=== PATIENT | female | born 1940 | race Caucasian/White ===

== ENCOUNTER 2018-05-19 07:55 | Day surgery (SDC) | payer OTHER ==
[~2018-05-19] VITALS: Ht 157.5 cm; Wt 64.9 kg
[~2018-05-19 07:55] MED LIST: Aspir 8181 MG PO; Atenolol50 MG PO; MELA3 PO; Pravachol40 MG PO; Super Calcium600 MG PO; VITAMIN B122500 MCG PO; VITAMIN C500 M1 PO; Vitamin D2000 UNIT PO
== END 2018-05-19 09:50 | disposition home or self-care (01) ==
LOC: ORSCSDS 07:55
PROVIDERS: Surgery
PROC: 0DJD8ZZ Inspection of Lower Intestinal Tract, Via Natural or Artificial Opening Endoscopic (ICD-10-PCS; principal; 2018-05-19 09:15)
DX: Z12.11 Encounter for screening for malignant neoplasm of colon (principal); Z86.010 Personal history of colon polyps; K21.9 Gastro-esophageal reflux disease without esophagitis; I10 Essential (primary) hypertension; E78.00 Pure hypercholesterolemia, unspecified; Z80.0 Family history of malignant neoplasm of digestive organs; Z79.82 Long term (current) use of aspirin; Z79.899 Other long term (current) drug therapy
CPT/HCPCS: J7120

== ENCOUNTER 2020-03-28 10:00 | Day surgery (SDC) | payer OTHER ==
[~2020-03-28] VITALS: Ht 157.5 cm; Wt 69.7 kg
[~2020-03-28 10:00] MED LIST changes: +ASCO500 PO; +ATEN50 PO; +B-121000 MCG PO; +Biotin800 MCG PO; +ESOM20 PO
--- NOTE | 2020-03-28 10:28 | NUR ---
03/28/20 1028 Renetta Aguirre 1 IV MISS IN RW BYMA VALVE PT TOW
--- NOTE | 2020-03-28 12:38 | NUR ---
03/28/20 1238 Fang Segal LATE ENTRY PATIENT REFUSED MULTIPLE OFFERS OF PO FLUIDS
== END 2020-03-28 12:27 | disposition home or self-care (01) ==
LOC: ORSCSDS 10:00
PROVIDERS: Student in an Organized Health Care Education/Training Program
PROC: 0DB48ZX Excision of Esophagogastric Junction, Via Natural or Artificial Opening Endoscopic, Diagnostic (ICD-10-PCS; principal; 2020-03-28 11:15)
PROC: 0DB58ZX Excision of Esophagus, Via Natural or Artificial Opening Endoscopic, Diagnostic (ICD-10-PCS; principal; 2020-03-28 11:15)
DX: R13.10 Dysphagia, unspecified (principal); I10 Essential (primary) hypertension; N18.9 Chronic kidney disease, unspecified; K21.9 Gastro-esophageal reflux disease without esophagitis; E78.00 Pure hypercholesterolemia, unspecified; Z79.899 Other long term (current) drug therapy
CPT/HCPCS: 88305; J2704; J7120

== ENCOUNTER 2024-06-02 17:32 | Observation (INO) | payer OTHER ==
[~2024-06-02] VITALS: Ht 165.1 cm; Wt 67.2 kg
[2024-06-02 18:04] LABS: BASOPHILS ABSOLUTE AUTO 0.04 K/mm3 (0.00-0.23); BASOPHILS PERCENT AUTO 0 % (0-2); EOSINOPHILS ABSOLUTE AUTO 0.06 K/mm3 (0.00-0.68); EOSINOPHILS PERCENT AUTO 1 % (0-6); Hematocrit 40.2 % (33.0-51.0); Hemoglobin 13.8 g/dL (11.5-16.0); IMMATURE GRAN ABSOLUTE AUTO 0.05 K/mm3 (0.00-0.10); IMMATURE GRAN PERCENT AUTO 1 % (0-1); LYMPHOCYTES ABSOLUTE AUTO 2.94 K/mm3 (0.84-5.20); LYMPHOCYTES PERCENT AUTO 28 % (21-46); MONOCYTES PERCENT AUTO 7 % (4-13); Mean Corpuscular HGB 32.8 pg (26.0-34.0); Mean Corpuscular HGB Conc 34.3 g/dL (31.5-36.5); Mean Corpuscular Volume 96 fL (80-100); Mean Platelet Volume 11.8 fL (9.1-12.4); NEUTROPHILS ABSOLUTE AUTO 6.61 K/mm3 (1.96-9.15); NEUTROPHILS PERCENT AUTO 64 % (41-73); Platelet Count 164 K/mm3 (150-400); RDW Coefficient Variation 13.6 % (11.7-14.2); RDW Standard Deviation 47.3 fL (35.1-46.3); Red Blood Cell Count 4.21 M/mm3 (3.80-5.20)
[2024-06-02 18:23] LABS: Albumin, Blood 3.7 g/dL (3.4-5.0); Bilirubin, Total 0.5 mg/dL (0.1-1.0); Bun/Creatinine Ratio 14.1 (12.0-20.0); Calcium, Blood 9.6 mg/dL (8.5-10.1); Creatinine, Blood 0.99 mg/dL (0.40-1.00); Globulin, Blood 3.8 g/dL (2.2-4.0); Potassium, Blood 3.9 mmol/L (3.5-5.5); Total Protein, Blood 7.5 g/dL (6.4-8.2)
[2024-06-02] MEDS ORDERED: Clopidogrel Bisulfate 75 MG Tab PO ONE (19:10)
[2024-06-02] MEDS ORDERED: Aspirin 325 MG Tab PO ONE (19:10)
[2024-06-02] MEDS ORDERED: FLU VACC TS2024-25(6MOS UP)/PF 45 MCG/0.5 ML SYRINGE IM ONE ×2 (21:05→22:00)
[2024-06-02 23:44] VITALS: BP 147/76
[2024-06-02] MEDS ORDERED: FAMO20 PO (23:54)
[2024-06-02] MEDS ORDERED: VITAMIN D5000 UNIT PO (23:54)
[2024-06-02] MEDS ORDERED: MELATONIN5 M1 PO (23:55)
[2024-06-02] MEDS ORDERED: Aspir 8181 MG PO (23:55)
[2024-06-03 04:19] VITALS: BP 117/62
--- NOTE | 2024-06-03 05:19 | NUR ---
CALLED AND DISCUSSED LACK OF CONTINUITY BETWEEN ADMITTING HOSPITALIST'S H&P AND CURRENT ORDERS. PK HAS BEEN WORKING INTERMITTENTLY THIS SHIFT. ON-CALL HOSPITALIST STATES ORDERS HAVE BEEN PLACED AND SHOULD CROSS OVER FOR MRI, SPEECH CONSULT, AND LABS.
--- NOTE | 2024-06-03 06:29 | NUR ---
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 SHE IS A STANDBY ASSIST, STRENGTH AND MOVEMENT EQUAL BILATERALLY. TELE WITH NO EVENTS SINCE PLACEMENT. SHE DENIES ANY DIFFICULTY WITH ELIMINATION. PT'S SPOUSE AT BEDSIDE TO ASSIST HER WITH COMMUNICATION. SHE IS LYING IN BED WITH THE CALL LIGHT IN REACH, BED IN LOWEST POSITION. PT HAS BEEN PLEASANT AND COOPERATIVE. WILL GIVE REPORT TO DAY SHIFT RN.
[2024-06-03 07:27] VITALS: BP 110/57
[2024-06-03 08:07] LABS: BASOPHILS ABSOLUTE AUTO 0.03 K/mm3 (0.00-0.23); BASOPHILS PERCENT AUTO 0 % (0-2); EOSINOPHILS ABSOLUTE AUTO 0.01 K/mm3 (0.00-0.68); EOSINOPHILS PERCENT AUTO 0 % (0-6); Hematocrit 34.5 % (33.0-51.0); Hemoglobin 12.1 g/dL (11.5-16.0); IMMATURE GRAN ABSOLUTE AUTO 0.02 K/mm3 (0.00-0.10); IMMATURE GRAN PERCENT AUTO 0 % (0-1); LYMPHOCYTES ABSOLUTE AUTO 2.19 K/mm3 (0.84-5.20); LYMPHOCYTES PERCENT AUTO 25 % (21-46); MONOCYTES ABSOLUTE AUTO 0.63 K/mm3 (0.16-1.47); MONOCYTES PERCENT AUTO 7 % (4-13); Mean Corpuscular HGB 32.4 pg (26.0-34.0); Mean Corpuscular HGB Conc 35.1 g/dL (31.5-36.5); Mean Corpuscular Volume 92 fL (80-100); Mean Platelet Volume 11.5 fL (9.1-12.4); NEUTROPHILS ABSOLUTE AUTO 5.94 K/mm3 (1.96-9.15); NEUTROPHILS PERCENT AUTO 68 % (41-73); Platelet Count 141 K/mm3 (150-400); RDW Coefficient Variation 13.5 % (11.7-14.2); RDW Standard Deviation 45.4 fL (35.1-46.3); Red Blood Cell Count 3.74 M/mm3 (3.80-5.20); White Blood Cell Count 8.82 K/mm3 (4.00-11.30)
[2024-06-03 08:30] LABS: Albumin, Blood 3.2 g/dL (3.4-5.0); Bilirubin, Total 0.8 mg/dL (0.1-1.0); Bun/Creatinine Ratio 13.2 (12.0-20.0); Calcium, Blood 9.5 mg/dL (8.5-10.1); Creatinine, Blood 1.06 mg/dL (0.40-1.00); Globulin, Blood 3.2 g/dL (2.2-4.0); Potassium, Blood 3.9 mmol/L (3.5-5.5); Total Protein, Blood 6.4 g/dL (6.4-8.2)
[2024-06-03] MEDS ORDERED: Clopidogrel Bisulfate 75 MG Tab PO SCH (09:00)
[2024-06-03] MEDS ORDERED: Aspirin 81 MG Chew PO SCH (09:00)
[2024-06-03] MEDS ORDERED: Famotidine 20 MG Tab PO SCH (09:00)
[2024-06-03] MEDS ORDERED: Enoxaparin 40 MG/0.4 ML SYR SC SCH ×2 (09:00)
[2024-06-03] MEDS ORDERED: Atorvastatin 40 MG Tab PO SCH (09:00)
[2024-06-03 11:44] LABS: CHOL/HDL RATIO 2.1; Cholesterol 156 mg/dL (50-200); HDL Cholesterol 74 mg/dL (>39); LDL/HDL RATIO 0.9; Low Density Lipoprotein Chol 66 mg/dL (0-110); Triglycerides 81 mg/dL (30-160); Very Low Density Lipoprot Chol 16 mg/dL (6-32)
[2024-06-03] MEDS ORDERED: CLOP75 PO (14:36)
--- NOTE | 2024-06-03 15:20 | NUR ---
PT DISCHARGED TO HOME. PRESENT AT TIME OF DISCHARGE. DISCHARGE INSTRUCIONS PROVIDED AND EDUCATED ON. ALL VALUABLES RETURNED AND SENT WITH THE PT.
== END 2024-06-03 15:18 | disposition home or self-care (01) ==
LOC: ER 17:32 → ERHOLD 21:38 → MEDS 23:39
PROVIDERS: Student in an Organized Health Care Education/Training Program; ADMIT Internal Medicine
DX: G45.9 Transient cerebral ischemic attack, unspecified (principal); K21.9 Gastro-esophageal reflux disease without esophagitis; I12.9 Hypertensive chronic kidney disease with stage 1 through stage 4 chronic kidney disease, or unspecified chronic kidney disease; N18.30 Chronic kidney disease, stage 3 unspecified; Z79.899 Other long term (current) drug therapy; E78.5 Hyperlipidemia, unspecified
CPT/HCPCS: 36415; 70450; 70496; 70498; 70551; 80053; 80061; 82947; 83036; 85025; 92610; 93005; 93010; 93306; 96372; 97161; 99285-25; A9270; G0378; J1650; Q9967